=== PATIENT | male | born 1965 | race Two or more races ===

== ENCOUNTER 2017-07-22 19:35 | Emergency (ER) | payer BC ==
[2017-07-22 19:52] VITALS: BP 145/94
--- NOTE | 2017-07-22 20:37 | RAD ---
Indication: Right knee pain. 4 views of the right knee demonstrates no fracture. No other bone or joint abnormality is identified. IMPRESSION: Unremarkable right knee.
[2017-07-22] MEDS ORDERED: Ibuprofen TAB* 400 MG PO ONE (20:42)
[2017-07-22] MEDS ORDERED: HYDROcodone/ACETAMIN 5-325 MG* 1 TAB PO ONE (20:43)
--- NOTE | 2017-07-22 22:47 | UC ---
Knee Pain HPI - HPI Summary HPI Summary: PATIENT PRESENTS WITH WORSENING RIGHT KNEE PAIN OVER THE PAST FEW DAYS. PATIENT STATES HE HAS HAD CHRONIC RIGHT KNEE PAIN FOR OVER 10 YEARS. 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 STATES HE HAD X-RAYS DONE ABOUT 10 YEARS AGO AND WAS TOLD HE HAD BONE SPURS. HAS NOT HAD ANY RECENT MEDICAL INTERVENTIONS OR TREATMENTS FOR THIS KNEE. NO ACUTE INJURY OR TRAUMA RECENTLY. - History of Current Complaint Chief Complaint: UCLowerExtremity Stated Complaint: KNEE PAIN Time Seen by Provider: 07/22/17 19:54 Hx Obtained From: Patient Onset/Duration: Gradual Onset, Still Present Severity Initially: Moderate Severity Currently: Moderate Pain Intensity: 8 Pain Scale Used: 0-10 Numeric Character: Sharp Aggravating Factor(s): Movement, Weight Bearing Alleviating Factor(s): Rest Associated Signs And Symptoms: Positive: Swelling, Weakness Able to Bear Weight: Yes - WITH PAIN - Allergies/Home Medications Allergies/Adverse Reactions: Allergies Allergy/AdvReac Type Severity Reaction Status Date / Time Penicillins Allergy Unknown Verified 07/22/17 19:43 Reaction Details PMH/Surg Hx/FS Hx/Imm Hx Previously Healthy: Yes - Surgical History Surgical History: Yes Surgery Procedure, Year, and Place: spleen removed at age 13 - Family History Known Family History: Positive: Hypertension - Social History Alcohol Use: None Substance Use Type: None Smoking Status (MU): Former Smoker Review of Systems Constitutional: Negative Skin: Negative Respiratory: Negative Cardiovascular: Negative Gastrointestinal: Negative Musculoskeletal: Arthralgia, Decreased ROM, Edema All Other Systems Reviewed And Are Negative: Yes Physical Exam Triage Information Reviewed: Yes Appearance: Well-Appearing, Well-Nourished, Pain Distress - MOD Vital Signs: Initial Vital Signs Temp 99.7 F 07/22/17 19:44 Pulse 64 07/22/17 19:44 Resp 20 07/22/17 19:44 BP 145/94 07/22/17 19:44 Pulse Ox 99 07/22/17 19:44 Vital Signs Reviewed: Yes Eyes: Positive: Conjunctiva Clear ENT: Positive: Hearing grossly normal Neck: Positive: Supple Respiratory: Positive: No respiratory distress, No accessory muscle use Cardiovascular: Positive: Pulses Normal Abdomen Description: Positive: Soft Musculoskeletal: Positive: ROM Limited @ - RIGHT KNEE, Edema @ - RIGHT KNEE OVER QUADRICEPS TENDON, Other: - RIGHT KNEE WARM TO TOUCH OVER QUADRICEPS TENDON WITH TENDERNESS AND SWELLING TO PALPATION. NO JOINT LINE TENDERNESS. KNEE EXAM LIMITED DUE TO PT DISCOMFORT. Neurological: Positive: Alert Psychological: Positive: Age Appropriate Behavior Skin: Negative: rashes Diagnostics - Radiology RIGHT KNEE XRAYS Xray Interpretation: No Acute Changes Radiology Interpretation Completed By: Radiologist Knee Pain Course/Dx - Course Course Of Treatment: OFFERED PATIENT TRANSPORT TO THE [facility] [place] ED GIVEN HIS LEVEL OF DISCOMFORT. PATIENT DECLINES IN FAVOR OF KNEE IMMOBILIZER, CRUTCHES AND FOLLOW- UP WITH ORTHOPEDICS TOMORROW. - Differential Dx/Diagnosis Provider Diagnoses: RIGHT KNEE SUSPECTED INTERNAL INJURY Discharge - Sign-Out/Discharge Documenting (check all that apply): Discharge/Admit/Transfer - Discharge Plan Condition: Stable Disposition: HOME Prescriptions: HYDROcodone/ACETAMIN 5-325 MG* [[place] 5-325 TAB*] 1 tab PO Q6H PRN #20 tab MDD 4 PRN Reason: Pain Ibuprofen TAB* [Motrin TAB* 800 MG] 800 mg PO Q8H PRN #30 tab PRN Reason: Pain Patient Education Materials: Knee Pain (ED) Referrals: Heriberto Price MD [Medical Doctor] - 1 Day Additional Instructions: X-RAY WITH SOME MILD DEGENERATIVE CHANGES BUT OTHERWISE UNREMARKABLE. I'M CONCERNED FOR INTERNAL KNEE INJURY. WEAR THE KNEE IMMOBILIZER YOU HAVE AT HOME AND USE YOUR CRUTCHES NEEDED FOR MOBILITY. CALL ORTHOPEDICS FIRST THING TOMORROW MORNING FOR AN APPOINTMENT TO BE SEEN SOON POSSIBLE. SUSPECTED INTERNAL KNEE INJURY: The examiner of your injured knee suspects an internal injury to the cartilage or internal ligaments. This must be further investigated by an orthopedic surgeon. The knee should be protected, ice packed, and elevated while awaiting your follow-up exam by the orthopedist. If there is severe swelling, severe pain, or any new symptoms while awaiting your exam, you should call the orthopedist. (If he/she is unavailable, call us or return for re-examination.) GO TO THE ED WITHOUT FAIL IF YOU DEVELOP FEVER OR WORSENING PAIN, SWELLING, REDNESS IN YOUR KNEE. - Billing Disposition and Condition Condition: STABLE Disposition: Home
== END 2017-07-22 21:00 | disposition home or self-care (01) ==
LOC: UCEAST 19:35
DX: M25.561 Pain in right knee (principal); Z90.81 Acquired absence of spleen; Z88.0 Allergy status to penicillin; Z82.49 Family history of ischemic heart disease and other diseases of the circulatory system
CPT/HCPCS: 99212; A9270-GY; G0463